=== PATIENT | female | born 1945 | race Caucasian/White ===

== ENCOUNTER 2017-11-29 20:50 | Emergency (ER) | payer SELFPAY ==
[2017-11-29] MEDS: DEXAMETHASONE 10 MG/ML 1 ML INJ PO (21:57)
[2017-11-29] MEDS: DIPHENHYDRAMINE 25 MG CAP PO (21:57)
== END 2017-11-29 22:46 | disposition home or self-care (01) ==
LOC: FTE 20:50
DX: R23.8 Other skin changes (principal)
CPT/HCPCS: 99283; J1100